=== PATIENT | female | born 1985 | race Caucasian/White ===

== ENCOUNTER 2023-05-19 08:31 | Outpatient (CLI) | payer OTHER, SELFPAY | END 2023-05-19 08:32 | disposition home or self-care (01) | PROVIDERS: PCP Family Medicine; Visit Provider Family Medicine | DX: L68.0 Hirsutism (principal); L81.1 Chloasma; R19.4 Change in bowel habit | CPT/HCPCS: 80053; 82671; 84144; 84403; 84443; 85651 ==

== ENCOUNTER 2025-05-03 09:18 | Outpatient (CLI) | payer BC, SELFPAY ==
[2025-05-03 12:55] LABS: Bacterial Vaginosis* Negative (Negative); Candida glab/krus NOT DETECTED (No Detected)
[2025-05-03 13:26] LABS: Chlamydia DNA Amplified* NOT DETECTED (No Detected); GC DNA Amplified* NOT DETECTED (No Detected)
[2025-05-05 14:02] LABS: HPV Source Cervix
[2025-05-05 19:35] LABS: HPV Genotype 16 by TMA Not Detected; HPV Genotype 18/45 by TMA Not Detected
[2025-05-12 15:33] LABS: Pap Test Digital Imaging Done; Pap Test Reviewed by Pathologi Done
== END 2025-05-03 09:19 | disposition home or self-care (01) ==
PROVIDERS: PCP Family Medicine; Visit Provider Registered Nurse
DX: Z12.4 Encounter for screening for malignant neoplasm of cervix (principal); Z13.9 Encounter for screening, unspecified; N89.8 Other specified noninflammatory disorders of vagina
CPT/HCPCS: 81513; 87481; 87491; 87591; 87624; 87625; 87661; 88141; 88142; 88175

== ENCOUNTER 2025-05-10 08:54 | Outpatient (CLI) | payer BC, SELFPAY | END 2025-05-10 08:55 | disposition home or self-care (01) | LOC: NFLDREF 05-13 16:11 | PROVIDERS: PCP Family Medicine; Referring Provider Family Medicine; Visit Provider Registered Nurse | DX: Z13.9 Encounter for screening, unspecified (principal); L68.0 Hirsutism; N91.5 Oligomenorrhea, unspecified | CPT/HCPCS: 80061; 82947; 83001; 83498; 84146; 84403; 84443 ==

== ENCOUNTER 2025-06-16 08:45 | Outpatient (CLI) | payer BC, SELFPAY ==
--- NOTE | 2025-06-16 09:15 | CRLHL7_ITS ---
For Patients: As a result of the Century Cures Act, medical imaging exams and procedure reports are released immediately into your electronic medical record. You may view this report before your referring provider. If you have questions, please contact your health care provider. INDICATION: OLIGOMENORRHEA COMPARISON: 02/14/2019 TECHNIQUE: 2D rousseau-scale and color Doppler images were acquired of the pelvis using a transabdominal and transvaginal approach. Transvaginal imaging performed to better visualize the endometrial stripe and ovaries. FINDINGS: Small posterior intramural fibroid measures 9 x 6 x 12 millimeters. Additional posterior intramural fibroid measures 9 x 5 x 6 millimeters. A 3rd intramural fibroid measures 11 x 6 x 8 millimeters. Uterus measures 9.7 cm in length by 5.4 cm in AP diameter by 6.4 cm in transverse dimension. Endometrium measures 15.2 millimeters. The right ovary measures 3.0 x 1.3 x 2.6 cm in size and the left ovary measures 3.5 x 2.2 x 2.7 cm. The ovaries demonstrate normal arterial and venous blood flow on color Doppler analysis. There are no suspicious fluid collections within the cul-de-sac. Hypoechoic structure within the left ovary containing mild internal color flow measures 1.7 x 1.7 x 1.8 cm. IMPRESSION: Low risk left ovarian structure measures 1.8 cm. Follow-up ultrasound in 6 months recommended. Endometrial thickness 15.2 millimeters. No endometrial fluid. Several small intramural fibroids measure up to 1.2 cm. Dictated by Malachi Astorga MD @ 06/19/2025 5:42:53 AM (Electronically Signed)
== END 2025-06-16 08:46 | disposition home or self-care (01) ==
LOC: US 08:46
PROVIDERS: PCP Family Medicine; Visit Provider Registered Nurse
DX: N91.5 Oligomenorrhea, unspecified (principal); N83.202 Unspecified ovarian cyst, left side; R93.89 Abnormal findings on diagnostic imaging of other specified body structures; D25.1 Intramural leiomyoma of uterus
CPT/HCPCS: 76830; 76856